=== PATIENT | male | born 1960 | race Caucasian/White ===

== ENCOUNTER 2022-07-18 07:30 | Day surgery (SDC) | payer OTHER ==
[~2022-07-18] VITALS: Ht 182.9 cm; Wt 120.5 kg
[~2022-07-18 07:30] MED LIST: ASPIRIN EC81 MG PO; ATENOLOL100 MG PO; B COMPLEX1 EACH PO; BOSULIF500 MG PO; GLUCOPHAGE500 MG PO; IBUPROFEN200 M1 PO; LISINOPRIL20 MG PO; TURMERIC500 M2 PO; VITAMIN D5000 UNIT PO; ZOCOR40 MG PO
--- NOTE | 2022-07-18 09:46 | NUR ---
07/18/22 0946 Taniya Ortiz 0942- PT ARRIVES TO PACU AWAKE AND TALKING. PT REPORTS NO PAIN OR NAUSEA. RESP EVEN AND UNLABORED. OXYGEN SAT MID 90'S ON 2L VIA CO2 NC. PT ENCOURAGED TO PASS FLATUS.
--- NOTE | 2022-07-19 07:12 | OR ---
[facility] [address], [place] [address] Signed DATE OF OPERATION: 07/18/2022 SURGEON: Sheryl Joyner MD PREOPERATIVE DIAGNOSIS: Half brother with colon cancer at age 58. POSTOPERATIVE DIAGNOSES: 1. 4 mm polyps x2 at 6 cm. 2. 5 mm polyps x2 at 5 cm. 3. 5 mm polyp distal right colon. 4. Minimal internal hemorrhoids. PROCEDURE: Colonoscopy with hot biopsy. ESTIMATED BLOOD LOSS: None. INDICATIONS: Antoine is a 61-year-old gentleman, asked to see me for his initial colonoscopy. He told me his half-brother developed colon cancer at age 58. He said his brother is still alive. However, they do not seem to communicate with each other all that often. Antoine said he has no lower GI complaints. In the office, I had given him a pamphlet on colonoscopy. He understands the nature of the test. There is risk including, but not limited to gas bloating, crampy abdominal pain, bleeding, perforation requiring surgery, and missed diagnosis. We also reviewed the written instructions for bowel prep line by line. We also reviewed the need for IV conscious sedation. He had expressed understanding and wished to proceed. PROCEDURE NOTE: Antoine was taken into our endoscopy suite and placed in the left lateral decubitus position. He was given IV sedation with 7 mg of Versed and 125 mcg of fentanyl. A digital rectal exam was performed and this was unremarkable. He had good sphincter tone. Really no external hemorrhoids. The adult colonoscope had been introduced and advanced all around into the cecum under direct visualization of the camera without difficulty. His prep was good. We needed just a little bit of additional sedation and abdominal compression in order to advance the scope into the cecum. We could easily see the appendiceal orifice and ileocecal valve. The scope was then slowly withdrawn. We took pictures throughout for photodocumentation. The above-mentioned polyps were easily Electronically Signed By: SHERYL JOYNER MD 07/19/22711 PATIENT NAME: ANTOINE UNDERWOOD OPERATIVE REPORT DATE OF : 56 REPORT #: [id number] PHYSICIAN: SHERYL JOYNER MD PCP: NO PRIMARY CARE PHYSICIAN REPORT IS CONFIDENTIAL AND NOT TO BE RELEASED WITHOUT AUTHORIZATION [facility] [address], [place] [address] Signed removed with the help of hot biopsy forceps. Once in the rectum, the scope had been retroflexed and he had just very minimal internal hemorrhoid tissue. After this, the gas was suctioned out colonoscope removed. Antoine tolerated the procedure quite well. RECOMMENDATIONS: I will see Antoine back in my office in 7 to 14 days to review his results. MD FREDI Adams/MODL /[id number] cc: SARAH Godoy MD Copies: SHERYL JOYNER MD ~ Electronically Signed By: SHERYL JOYNER MD 07/19/22711 PATIENT NAME: ANTOINE UNDERWOOD OPERATIVE REPORT DATE OF : 56 REPORT #: [id number] PHYSICIAN: SHERYL JOYNER MD PCP: NO PRIMARY CARE PHYSICIAN REPORT IS CONFIDENTIAL AND NOT TO BE RELEASED WITHOUT AUTHORIZATION
--- NOTE | 2022-07-22 15:08 | PATH ---
[facility] [address], [place] [address] Signed SPECIMEN(S): A RECTAL POLYPS AT 6 CM SPECIMEN(S): B RECTAL POLYPS AT 5 CM SPECIMEN(S): C DISTAL ASCENDING/RIGHT COLON POLYP SPECIMEN SOURCE: A. RECTAL POLYPS AT 6 CM B. RECTAL POLYPS AT 5 CM C. DISTAL ASCENDING/RIGHT COLON POLYP CLINICAL HISTORY: Screening colonoscopy. Internal hemorrhoids, colon polyp and rectal polyps. FINAL PATHOLOGIC DIAGNOSIS: A. Rectal polyps at 6 cm: - Tubular adenoma (one fragment). B. Rectal polyps at 5 cm: - Hyperplastic polyps (two fragments). C. Distal ascending / right colon polyp: - Polypoid colonic mucosa with slight hyperplastic features (one fragment). JVR:sm:C2NR MICROSCOPIC EXAMINATION: Histologic sections of all submitted blocks are examined by light microscopy. These findings, together with the gross examination, support the pathologic diagnosis. GROSS DESCRIPTION: Three specimens are received in three containers, labeled "CL." A. The specimen, labeled "CL #1," is received in formalin and consists of two rivera soft tissue fragments that measure 0.2 cm in greatest dimension. The specimen is entirely submitted in cassette (A1). B. The specimen, labeled "CL #2," is received in formalin and consists of three rivera soft tissue fragments that measure 0.2 cm in greatest dimension. The specimen is entirely submitted in cassette (B1). C. The specimen, labeled "CL #3," is received in formalin and consists of one rivera soft tissue fragment that measures 0.2 cm in greatest dimension. The specimen is entirely submitted in cassette (C1). KV (under the direct supervision of a pathologist) PATIENT NAME: ANTOINE UNDERWOOD PATHOLOGY DATE OF : 56 REPORT #: [id number] PHYSICIAN: MIGUEL ALVAREZ PCP: NO PRIMARY CARE PHYSICIAN REPORT IS CONFIDENTIAL AND NOT TO BE RELEASED WITHOUT AUTHORIZATION [facility] [address], [place] [address] Signed The Gross Description was prepared using a voice recognition system. The report was reviewed for accuracy; however, sound-alike word errors, addition and/or deletions may occur. If there is any question about this report, please contact Client Services. PERFORMING LABORATORY: The technical component was performed by [facility], [address] [place] [address] (CLIA# [id number]). Professional interpretation was performed by [facility] - [facility], [address] [place] [id number] (CLIA#: [id number]). Diagnostician: Mckay Giraldo MD Pathologist Electronically Signed 07/22/2022 Copies: ~ PATIENT NAME: ANTOINE UNDERWOOD PATHOLOGY DATE OF : 56 REPORT #: [id number] PHYSICIAN: MIGUEL PATHOLOGY PCP: NO PRIMARY CARE PHYSICIAN REPORT IS CONFIDENTIAL AND NOT TO BE RELEASED WITHOUT AUTHORIZATION
== END 2022-07-18 10:26 | disposition home or self-care (01) ==
LOC: DS 07:30 → OPS 07:30 → DS 09:00 → OPS 09:00
PROVIDERS: ATTEND Colon & Rectal Surgery
PROC: 0DBP8ZZ Excision of Rectum, Via Natural or Artificial Opening Endoscopic (ICD-10-PCS; 2022-07-18)
PROC: 0DBK8ZZ Excision of Ascending Colon, Via Natural or Artificial Opening Endoscopic (ICD-10-PCS; principal; 2022-07-18 09:00)
DX: Z12.11 Encounter for screening for malignant neoplasm of colon (principal); Z80.0 Family history of malignant neoplasm of digestive organs; E11.9 Type 2 diabetes mellitus without complications; D17.9 Benign lipomatous neoplasm, unspecified; E66.9 Obesity, unspecified; Z68.35 Body mass index [BMI] 35.0-35.9, adult; I10 Essential (primary) hypertension; K64.8 Other hemorrhoids; D12.8 Benign neoplasm of rectum; K63.5 Polyp of colon
CPT/HCPCS: 99153; G0500; J2250; J3010; J7121

== ENCOUNTER 2022-12-31 13:43 | Emergency (ER) | payer OTHER ==
[~2022-12-31] VITALS: Ht 182.9 cm; Wt 114.1 kg
[2022-12-31] MEDS ORDERED: HYDROCHLOROTH12.5 MG PO (16:45)
[2022-12-31] MEDS ORDERED: METFORMIN HCL500 M1 PO (16:46)
--- NOTE | 2022-12-31 18:51 | EKG ---
[facility] [address] [facility] [place], [place] [address] Signed Sinus bradycardia Otherwise normal ECG When compared with ECG of 17-JUL-2016 15:44, No significant change was found Confirmed by MARGO HUSTON MD ([id number]) on 12/31/2022 6:50:55 PM Electronically Signed By: MARGO HUSTON MD 12/31/221850 PATIENT NAME: KJANTOINESHEEBA LYNCH Electrocardiogram DATE OF : 56 PHYSICIAN: MARGO HUSTON MD REPORT #: [id number] REPORT IS CONFIDENTIAL AND NOT TO BE RELEASED WITHOUT AUTHORIZATION
== END 2022-12-31 21:53 | disposition short-term general hospital (02) ==
LOC: ED 13:43
DX: J96.01 Acute respiratory failure with hypoxia (principal); J90 Pleural effusion, not elsewhere classified; I10 Essential (primary) hypertension; Z20.822 Contact with and (suspected) exposure to COVID-19; Z88.2 Allergy status to sulfonamides; Z79.899 Other long term (current) drug therapy; Z79.84 Long term (current) use of oral hypoglycemic drugs; Z79.82 Long term (current) use of aspirin
CPT/HCPCS: 36415; 36600; 71045; 71260; 80053; 82803; 83880; 84484; 85025; 87502; 93005; 93010; 94799; 99285-25; C9803; J1940; Q9967; U0003